=== PATIENT | female | born 1975 | race American Indian/Alaskan Native ===

== ENCOUNTER 2017-10-16 19:50 | Emergency (ER) | payer OTHER ==
[2017-10-16 19:59] VITALS: BP 123/66
[2017-10-16] MEDS ORDERED: ULTRAM PO ONE (20:41)
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
== END 2017-10-16 21:23 | disposition home or self-care (01) ==
LOC: ED 19:50
DX: M54.5 Low back pain (principal); M25.511 Pain in right shoulder; M25.512 Pain in left shoulder
CPT/HCPCS: 99283